=== PATIENT | male | born 1950 | race Caucasian/White ===

== ENCOUNTER 2017-07-25 03:17 | Inpatient (IN) | payer OTHER ==
[2017-07-25] VITALS (7 sets, daily range): BP systolic 108–132; BP diastolic 43–61; Ht 165.1 cm; Wt 68.7 kg
[~2017-07-25] VITALS: Ht 165.1 cm; Wt 68.7 kg
[2017-07-25] MEDS ORDERED: APAP/HYDROCODON1 T11 PO (04:28)
[2017-07-25] MEDS ORDERED: GLIPIZIDE5 M2 PO (04:29)
[2017-07-25] MEDS ORDERED: HYDROCHLOROTH12.5 M2 PO (04:30)
[2017-07-25] MEDS ORDERED: METOPROLOL TART50 MG PO (04:31)
[2017-07-25] MEDS ORDERED: LIPITOR40 MG PO (04:31)
[2017-07-25] MEDS ORDERED: LOSARTAN POTASS50 M1 PO (04:31)
[2017-07-25] MEDS ORDERED: CLOPIDOGREL75 M1 PO (04:32)
[2017-07-25 04:35] LABS: PLATELET COUNT 221 x10^3mcL (130-400)
[2017-07-25 04:40] LABS: CALCIUM 8.7 mg/dL (8.5-10.1); CARBON DIOXIDE 17.1 mmol/L (21-32); CREATININE SERUM 1.7 mg/dL (0.7-1.3); POTASSIUM SERUM 4.2 mmol/L (3.5-5.1)
[2017-07-25 04:44] LABS: ALBUMIN 2.9 g/dL (3.4-5.0); BASOPHIL % 0 % (0-2); BILIRUBIN TOTAL 0.8 mg/dL (0.20-1.00); RED CELL DISTRIBUTION WIDTH 19.4 % (11.5-14.5); TOTAL PROTEIN, SERUM 7.2 g/dL (6.4-8.2)
[2017-07-25 05:56] LABS: MAGNESIUM 1.8 mg/dL (1.8-2.4); PHOSPHOROUS 3.6 mg/dL (2.5-4.9)
[2017-07-25 06:00] LABS: CHOLESTEROL/HDL RATIO 4.8
[2017-07-25 06:05] LABS: T3 TOTAL 0.82 ng/mL
[2017-07-25 06:09] LABS: FREE T4 1.72 ng/dL (0.76-1.46); T4(THYROXINE) 9.9 ug/dL (4.7-13.3)
[2017-07-25 12:18] LABS: microscopic required? YES; urine erythrocyte 3+ (NEGATIVE)
[2017-07-25 12:26] LABS: RED BLOOD CELLS 3.03 M/mm3 (4.52-5.90)
[2017-07-25 12:46] LABS: IRON 16 ug/dL (65-170); TOTAL IRON BINDING CAPACITY 119 ug/dL (250-450)
[2017-07-25 12:53] LABS: AMPHETAMINE QUAL UR NONE DETECTED (NEG <=1000)
[2017-07-25 20:25] LABS: PLATELET COUNT 195 x10^3mcL (130-400)
[2017-07-25 20:26] LABS: BASOPHIL % 0 % (0-2); RED CELL DISTRIBUTION WIDTH 19.3 % (11.5-14.5)
[2017-07-26 04:50] LABS: PLATELET COUNT 206 x10^3mcL (130-400)
[2017-07-26 04:51] LABS: BASOPHIL % 0 % (0-2); RED CELL DISTRIBUTION WIDTH 19.3 % (11.5-14.5)
[2017-07-26 04:54] LABS: CALCIUM 8.6 mg/dL (8.5-10.1); CARBON DIOXIDE 16.9 mmol/L (21-32); CREATININE SERUM 1.3 mg/dL (0.7-1.3); POTASSIUM SERUM 3.8 mmol/L (3.5-5.1)
[2017-07-26 05:48] VITALS: BP 135/55
[2017-07-26 09:54] VITALS: BP 118/64
[2017-07-26 13:43] VITALS: BP 109/62
[2017-07-26 16:58] VITALS: BP 111/61
[2017-07-26 21:01] VITALS: BP 122/46
[2017-07-27 05:56] VITALS: BP 123/49
[2017-07-27 07:43] LABS: PLATELET COUNT 235 x10^3mcL (130-400)
[2017-07-27 07:45] LABS: BASOPHIL % 0 % (0-2); RED CELL DISTRIBUTION WIDTH 19.9 % (11.5-14.5)
[2017-07-27 08:07] LABS: CHLORIDE SERUM 102 mmol/L (98-107); CREATININE SERUM 1.2 mg/dL (0.7-1.3); GFR1 > 60 mL/min; GLUCOSE SERUM 133 mg/dL (74-106); POTASSIUM SERUM 3.5 mmol/L (3.5-5.1); SODIUM SERUM 136 mmol/L (136-145)
[2017-07-27 08:18] LABS: CALCIUM 8.4 mg/dL (8.5-10.1); CARBON DIOXIDE 21.3 mmol/L (21-32)
[2017-07-27 08:50] VITALS: BP 129/49
[2017-07-27 13:54] VITALS: BP 115/58
[2017-07-27 17:48] VITALS: BP 118/47
[2017-07-27 22:15] VITALS: BP 102/53
[2017-07-28 06:06] VITALS: BP 113/62
[2017-07-28 06:58] LABS: CALCIUM 8.2 mg/dL (8.5-10.1); CARBON DIOXIDE 21.7 mmol/L (21-32); CHLORIDE SERUM 103 mmol/L (98-107); CREATININE SERUM 1.2 mg/dL (0.7-1.3); GFR1 > 60 mL/min; GLUCOSE SERUM 135 mg/dL (74-106); POTASSIUM SERUM 3.7 mmol/L (3.5-5.1); SODIUM SERUM 138 mmol/L (136-145)
[2017-07-28 07:04] LABS: PLATELET COUNT 256 x10^3mcL (130-400)
[2017-07-28 07:22] LABS: BASOPHIL % 0 % (0-2); RED CELL DISTRIBUTION WIDTH 19.8 % (11.5-14.5)
[2017-07-28 08:07] VITALS: BP 103/50
[2017-07-28 12:16] LABS: rbc morphology (normal/abnorm) ABNORMAL (NORMAL)
[2017-07-28 12:51] VITALS: BP 108/46
[2017-07-28 15:39] VITALS: BP 108/46
== END 2017-07-28 17:34 | disposition home health service (06) | DRG 177 ==
LOC: ED 03:17 → DU 05:23
PROVIDERS: Emergency Medicine Emergency Medical Services; Family Medicine
DX: J69.0 Pneumonitis due to inhalation of food and vomit (principal); I21.A1 Myocardial infarction type 2; N17.0 Acute kidney failure with tubular necrosis; J96.01 Acute respiratory failure with hypoxia; E87.1 Hypo-osmolality and hyponatremia; E44.0 Moderate protein-calorie malnutrition; I42.2 Other hypertrophic cardiomyopathy; M62.82 Rhabdomyolysis; E87.2 Acidosis; L97.829 Non-pressure chronic ulcer of other part of left lower leg with unspecified severity; E86.0 Dehydration; I25.10 Atherosclerotic heart disease of native coronary artery without angina pectoris; E87.8 Other disorders of electrolyte and fluid balance, not elsewhere classified; D64.9 Anemia, unspecified; E66.3 Overweight; I12.9 Hypertensive chronic kidney disease with stage 1 through stage 4 chronic kidney disease, or unspecified chronic kidney disease; N18.9 Chronic kidney disease, unspecified; R31.9 Hematuria, unspecified; D50.9 Iron deficiency anemia, unspecified; Z53.29 Procedure and treatment not carried out because of patient's decision for other reasons; E11.622 Type 2 diabetes mellitus with other skin ulcer; E11.21 Type 2 diabetes mellitus with diabetic nephropathy; E11.22 Type 2 diabetes mellitus with diabetic chronic kidney disease; E11.51 Type 2 diabetes mellitus with diabetic peripheral angiopathy without gangrene; Z89.611 Acquired absence of right leg above knee; Z85.118 Personal history of other malignant neoplasm of bronchus and lung; Z95.1 Presence of aortocoronary bypass graft; Z90.5 Acquired absence of kidney; Z88.1 Allergy status to other antibiotic agents; Z87.891 Personal history of nicotine dependence; I25.2 Old myocardial infarction; Z90.49 Acquired absence of other specified parts of digestive tract; Z79.84 Long term (current) use of oral hypoglycemic drugs; Z79.899 Other long term (current) drug therapy; Z68.24 Body mass index [BMI] 24.0-24.9, adult
CPT/HCPCS: 82962; 83880; 84439; 94150; J1644; J1885; J1956; J2543; J2916; J3490; J7030; J7040

== ENCOUNTER 2019-05-05 19:02 | Inpatient (IN) | payer OTHER ==
[~2019-05-05] VITALS: Ht 167.6 cm; Wt 80.1 kg
[~2019-05-05 19:02] MED LIST: APAP/HYDROCODON1 T11 PO; CLOPIDOGREL75 M1 PO; GLIPIZIDE5 M2 PO; HYDROCHLOROTH12.5 M2 PO; LIPITOR40 MG PO; LOSARTAN POTASS50 M1 PO; METOPROLOL TART50 MG PO
[2019-05-05 19:15] VITALS: Ht 167.6 cm; Wt 80.1 kg
--- NOTE | 2019-05-05 19:21 | NUR ---
DR. WRIGHT AT BEDSIDE [facility]
--- NOTE | 2019-05-05 19:31 | NUR ---
PT. BIBA FROM HOME, C/O DOUBLE VISION BILATERALLY, PT. STATES HE WAS HOME WATCHING TV, AND HE SNEEZED, THEN BEGAN SEEING DOUBLE VISION ON BOTH EYES, HE STATES WHEN HE CLOSES ONE EYE, HE IS ABLE TO SEE CLEAR, NO LONGER SEE DOUBLE, PT. STATES THE RIGHT EYE MORE THAN THE LEFT EYE, HE SEES CLOUDY, PT. DENIES EYE PAIN, EYE DRAINAGE AT THIS TIME, DENIES SOB, WHEN FIRST ARRIVED PT. WAS 33 RR, CURRENTLY 19 RR, DENIES CHEST PAIN AT THIS TIME, DENIES N/V/D, SKIN, COOL TO TOUCH, INTACT, LEFT LEG AMPUTATED, PLACED IN BED 7, AAOX4, PLACED ON CM, NSR, NO ACUTE DISTRESS NOTED, STATES HE HAS NOT TAKEN BP MEDS TONIGHT, AT BEDSIDE, WILL MONITOR, SAFETY PRECAUTIONS IN PLACE, CALL LIGHT IN REACH,
--- NOTE | 2019-05-05 19:40 | NUR ---
PT. TO CT VIA JANUARY WITH TECH
[2019-05-05 20:11] LABS: CALCIUM 8.8 mg/dL (8.5-10.1); CARBON DIOXIDE 20.2 mmol/L (21-32); CHLORIDE SERUM 106 mmol/L (98-107); CREATININE SERUM 1.6 mg/dL (0.7-1.3); GLUCOSE SERUM 76 mg/dL (74-106); POTASSIUM SERUM 4.2 mmol/L (3.5-5.1); SODIUM SERUM 140 mmol/L (136-145)
[2019-05-05 20:15] LABS: ALBUMIN 3.4 g/dL (3.4-5.0); ALKALINE PHOSPHATASE 87 U/L (46-116); ALT/SGPT 29 U/L (16-63); AST/SGOT 11 U/L (15-37); TOTAL PROTEIN, SERUM 7.5 g/dL (6.4-8.2)
[2019-05-05 20:33] LABS: BASOPHIL % 0.5 % (0-2); PLATELET COUNT 173 x10^3mcL (130-400); RED CELL DISTRIBUTION WIDTH 15.7 % (11.5-14.5)
--- NOTE | 2019-05-05 21:20 | NUR ---
SPOKE WITH MELISSA BOYER WITH [facility] [employer]
--- NOTE | 2019-05-05 21:20 | NUR ---
REASSESSMENT- PT. STATES THAT THE IS NO LONGER SEEING DOUBLE VISION, STATES HE IS SEEING CLEAR WITHOUT ANY DIFFICULTY, REPORTED TO DR. WRIGHT,
--- NOTE | 2019-05-05 21:26 | NUR ---
MEDICATED PT. PER MD ORDER, PT. TOLERATED WELL, SEE EMAR
--- NOTE | 2019-05-05 22:08 | NUR ---
RESIDENT STUDENTS AT BEDSIDE
[2019-05-05 22:30] LABS: MAGNESIUM 1.8 mg/dL (1.8-2.4); PHOSPHOROUS 3.4 mg/dL (2.5-4.9)
--- NOTE | 2019-05-05 22:37 | NUR ---
REPORT GIVEN TO ROBERTO URIAS RN
--- NOTE | 2019-05-05 23:10 | NUR ---
RECEIVED FROM ER, TRANSFERRED VIA [facility]. AWAKE AND ALERT, ORIENTED TO NAME, PLACE, TIME AND SITUATION. SPEECH CLEAR AND APPROPRIATE. NO SLURRING OF SPEECH, NO FACIAL DROOP. DENIES HAVING BLURRY OR DOUBLE VISION AT THIS TIME. RIGHT AKA. LONG SURGICAL SCAR TO LEFT LATERAL ASPECT OF LEFT LEG. SALINE LOCK TO RIGHT AC. INSTRUCTED ON USE OF CALL LIGHT TO CALL FOR ASSISTANCE, PLACED WITHIN EASY REACH. ENDORSED TO NURSE BERRIOS
[2019-05-05 23:13] LABS: microscopic required? NO
--- NOTE | 2019-05-05 23:15 | NUR ---
RECEIVED PT FROM ROSALIND LOZOYA. PT AOX4, DENIES PITT/DIZZINESS, NO FACIAL DROOP OR SLURRING NOTED. ON TELE #9, READING SR. DENIES CP/PRESSURE. DENIES SOB/DIFFICULTY BREATHING, ON RA. R. ABOVE THE KNEE AMP. IV TO RAC, INTACT AND PATENT. BED IN LOWEST POSITION. CALL LIGHT WITHIN REACH. WILL CONTINUE TO MONITOR.
[2019-05-05 23:22] LABS: UA SPECIFIC GRAVITY <=1.005 (1.005-1.035); urine erythrocyte NEGATIVE (NEGATIVE)
[2019-05-05 23:26] VITALS: BP 146/68
[2019-05-05 23:38] LABS: AMPHETAMINE QUAL UR NONE DETECTED (See below)
--- NOTE | 2019-05-06 02:45 | NUR ---
PT RESTING IN BED. RR EVEN AND UNLABORED. IN NO ACUTE DISTRESS. CALL LIGHT WITHIN REACH. BED IN LOWEST POSITION. WILL CONTINUE TO MONITOR.
[2019-05-06 05:36] VITALS: BP 116/56
--- NOTE | 2019-05-06 07:30 | NUR ---
PATIENT IS A&OX4. FOLLOWS COMMANDS AND DENIES ANY NEUROLOGICAL CHANGE. TELE #9, NSR. DENIES CHEST PAIN. PERIPHERAL PULSES PALPABLE W/ NO SIGNS OF EDEMA. LUNG SOUNDS DIMINISHED. ON RA. DENIES SOB. NORMOACTIVE BSX4. VOIDS WELL USING URINAL. RLE AKA. WHEELCHAIR AT BEDSIDE. CURRENTLY LYING SUPINE IN BED. LARGE SCAR TO LLE PRESENT FROM PREVIOUS SURGICAL HX OF FASCIOTOMY. DENIES ANY PAIN OR DISCOMFORT. RAC IV SITE IS CDI. WILL CONTINUE TO MONITOR AT THIS TIME.
--- NOTE | 2019-05-06 07:51 | NUR ---
PT WAS SEEN FOR DYSPHAGIA. PT WAS ABVLE TO SAFELY SWALLOW REGULAR DIET WITH THIN LIQUID WITHOUT S/S OF ASPIRATION. RECOMMENDATION REGULAR DIET WITH THIN LIQUID.
[2019-05-06 08:00] VITALS: BP 114/62
[2019-05-06 11:43] VITALS: BP 129/60
--- NOTE | 2019-05-06 12:24 | NUR ---
ECHO WITH [id number] REQUESTING TEST BE DONE AFTER HE EATS LUNCH
[2019-05-06 16:20] VITALS: BP 133/66
--- NOTE | 2019-05-06 17:51 | NUR ---
PATIENT IS ALERT & ORIENTED X4. DENIES CHEST PAIN. NO SIGNIFICANT CHANGES IN NEUROLOGCIAL STATUS. PATIENT IS CURRENTLY RESTING WHILE WATCHING TELEVISION. PATIENT DENIES ANY PAIN OR DISCOMFORT AT THIS TIME. ALL QUESTIONS AND CONCERNS HAVE BEEN ADDRESSED. WILL CONTINUE TO MONITOR.
--- NOTE | 2019-05-06 19:10 | NUR ---
REPORT RECEIVED FROM DAY SHIFT RN. PATIENT WAS SEEN RESTING COMFORTABLY IN BED. NO DISTRESS NOTED. BREATHING EVEN AND UNLABORED ON ROOM AIR. NO SOB OR RESP DISTRESS NOTED. NO C/O PAIN. DENIES CHEST PAIN/PRESSURE. IV TO THE RAC, SALINE LOCK. PATENT AND INTACT. NO REDNESS OR SWELLING NOTED. A/OX4. NO FACIAL DROOP OR SLURRING NOTED. CLEAR AND APPROPIATE SPEECH. RIGHT AKA AND LARGE HEALED SCAR TO LLE. COMFORT AND SAFETY MEASURES IN PLACE. BED IS LOCKED AND IN THE LOWEST POSITION. SIDE RAILS UP X2. CALL LIGHT IS WITHIN REACH. WILL CONTINUE TO MONITOR.
[2019-05-06 21:04] VITALS: BP 122/58
--- NOTE | 2019-05-06 23:08 | NUR ---
RAC IV INFILTRATED W/ ERYTHEMA. REMOVED WITH CATHETER INTACT. NEW IV PLACED TO RH, 22G. FLUSHES WELL. PATENT AND INTACT. NO DISTRESS NOTED. SAFETY MEASURES IN PLACE. CALL LIGHT IS WITHIN REACH. WILL CONTINUE TO MONITOR.
--- NOTE | 2019-05-07 01:53 | NUR ---
RESTING IN BED W/ EYES CLOSED. BREATHING EVEN AND UNLABORED ON ROOM AIR. NO SOB NOTED. NO APPARENT DISTRESS NOTED. NO S/S OF PAIN NOTED. SAFETY MEASURES IN PLACE. CALL LIGHT IS WITHIN REACH. WILL CONTINUE TO MONITOR.
[2019-05-07 04:58] VITALS: BP 128/53
[2019-05-07 05:28] VITALS: BP 144/58
--- NOTE | 2019-05-07 06:30 | NUR ---
RESTED IN INTERVALS THROUGHOUT THE NIGHT. NO ACUTE CHANGES NOTED. NO DISTRESS NOTED. BREATHING EVEN AND UNLABORED. NO SOB NOTED. DENIES CHEST PAIN/PRESSURE. NO C/O PAIN NOTED. IV TO THE RH, SALINE LOCK. PATENT AND INTACT. NO REDNESS OR SWELLING NOTED. ALL NEEDS AND CONCERNS ADDRESSED. BED IS LOCKED AND IN THE LOWEST POSITION. SIDE RAILS UP X2. CALL LIGHT IS WITHIN REACH. WILL ENDORSED CARE TO DAY SHIFT RN.
[2019-05-07 07:04] LABS: BASOPHIL % 0.4 % (0-2); PLATELET COUNT 160 x10^3mcL (130-400)
[2019-05-07 07:06] LABS: RED CELL DISTRIBUTION WIDTH 15.8 % (11.5-14.5)
[2019-05-07 07:19] LABS: CALCIUM 8.5 mg/dL (8.5-10.1); CARBON DIOXIDE 18.1 mmol/L (21-32); CHLORIDE SERUM 109 mmol/L (98-107); CREATININE SERUM 1.5 mg/dL (0.7-1.3); GLUCOSE SERUM 117 mg/dL (74-106); PHOSPHOROUS 3.3 mg/dL (2.5-4.9); POTASSIUM SERUM 4.5 mmol/L (3.5-5.1); SODIUM SERUM 140 mmol/L (136-145)
--- NOTE | 2019-05-07 07:30 | NUR ---
PATIENT IS A&OX4, TELE #9, NSR. DENIES CHEST PAIN. PERIPEHRAL PULSES PALPABLE W/ NO SIGNS OF EDEMA. ON ASPIRIN, PLAVIX, HEPARIN. LUNG SOUNDS DIMINISHED BILATERALLY, ON RA. NORMOACTIVE BSX4. VOIDS WELL. RLE AKA. BEDREST, LYING SUPINE AT THIS TIME. LARGE SCAR TO LLE HEALED. DENIES PAIN. IV SITE IS CDI. VSS. WILL CONTINUE TO MONITOR
[2019-05-07 09:20] VITALS: BP 118/59
[2019-05-07 11:58] VITALS: BP 135/74
[2019-05-07 12:14] VITALS: BP 127/59
--- NOTE | 2019-05-07 12:25 | NUR ---
PATIENT HAS RECEVED DISCHARGE INSTRUCTIONS TO GO HOME. PATIENT VERBALIZED UNDERSTANDING OF INSTRUCTIONS AND SIGNED SIGNATURES. ALL QUESTIONS AND CONCERNS HAVE BEEN ADDRESSED. TELE WAS DC, IV CATHETER WAS DC AND IS INTACT. PATIENT DENIES ANY PAIN OR DISCOMFORT AT THIS TIME. WILL TRANSFER TO WHEELCHAIR ONCE PATIENT'S ARRIVES. WILL CONTINUE TO MONITOR
--- NOTE | 2019-05-07 12:38 | NUR ---
PATIENT HAS BEEN DISCHARGED WITH AND [employer]. ALL QUESTIONS AND CONCERNS AHVE BEEN ADDRESSED.
== END 2019-05-07 12:38 | disposition home or self-care (01) | DRG 69 ==
LOC: ED 19:02 → EDBD 19:02 → DU 21:53
PROVIDERS: Emergency Medicine; ADMIT Internal Medicine
DX: G45.9 Transient cerebral ischemic attack, unspecified (principal); N17.0 Acute kidney failure with tubular necrosis; H53.8 Other visual disturbances; E11.9 Type 2 diabetes mellitus without complications; I11.9 Hypertensive heart disease without heart failure; I25.10 Atherosclerotic heart disease of native coronary artery without angina pectoris; D64.9 Anemia, unspecified; I25.2 Old myocardial infarction; Z95.1 Presence of aortocoronary bypass graft; Z85.528 Personal history of other malignant neoplasm of kidney; Z90.5 Acquired absence of kidney; Z85.118 Personal history of other malignant neoplasm of bronchus and lung; Z99.3 Dependence on wheelchair; Z89.511 Acquired absence of right leg below knee; Z68.29 Body mass index [BMI] 29.0-29.9, adult
CPT/HCPCS: 82962; 92526-GN; 92610-GN; 97530-GP; G0378; J1644; J2060; Q0092

== ENCOUNTER 2020-02-15 00:45 | Observation (INO) | payer OTHER ==
[~2020-02-15] VITALS: Ht 152.4 cm; Wt 81.6 kg
[~2020-02-15 00:45] MED LIST changes: +BG FS; +GLIPIZIDE XL5 M2 PO; +HEP5I SC; +HUMULIN R100 U/1 M1 SC; +SIMVASTATIN5 M2 PO; +TYL325 PO; +[UNRECOGNIZED DRUG - CODE] SQ
[2020-02-15 00:54] VITALS: Ht 152.4 cm; Wt 81.6 kg
[2020-02-15 02:11] LABS: BASOPHIL % 0.2 % (0-2)
[2020-02-15 02:12] LABS: PLATELET COUNT 230 x10^3mcL (130-400); RED CELL DISTRIBUTION WIDTH 16.2 % (11.5-14.5)
[2020-02-15] MEDS ORDERED: INSULIN SYRING1 EA29 (02:36)
[2020-02-15] MEDS ORDERED: ATORVASTATIN CA10 M1 (02:37)
[2020-02-15] MEDS ORDERED: MICROZIDE12.5 MG (02:37)
[2020-02-15] MEDS ORDERED: METOPROLOL ER-1 EACH (02:37)
[2020-02-15 02:46] LABS: ALKALINE PHOSPHATASE 97 U/L (46-116); ALT/SGPT 24 U/L (16-63); AST/SGOT 11 U/L (15-37); CARBON DIOXIDE 21.2 mmol/L (21-32); CHLORIDE SERUM 95 mmol/L (98-107); CREATININE SERUM 2.2 mg/dL (0.7-1.3); MAGNESIUM 2.5 mg/dL (1.8-2.4); PHOSPHOROUS 4.5 mg/dL (2.5-4.9); POTASSIUM SERUM 4.6 mmol/L (3.5-5.1); SODIUM SERUM 129 mmol/L (136-145); TOTAL PROTEIN, SERUM 7.2 g/dL (6.4-8.2)
[2020-02-15 02:47] LABS: ALBUMIN 2.5 g/dL (3.4-5.0)
[2020-02-15 02:48] LABS: GLUCOSE SERUM 708 mg/dL (74-106)
[2020-02-15 05:53] VITALS: BP 112/57
[2020-02-15 08:21] VITALS: BP 108/51
[2020-02-15 08:47] LABS: CALCIUM 8.5 mg/dL (8.5-10.1); CHLORIDE SERUM 103 mmol/L (98-107); CREATININE SERUM 1.9 mg/dL (0.7-1.3); GLUCOSE SERUM 429 mg/dL (74-106); POTASSIUM SERUM 4.2 mmol/L (3.5-5.1); SODIUM SERUM 133 mmol/L (136-145)
[2020-02-15 17:28] VITALS: BP 169/78
[2020-02-15 20:30] VITALS: BP 96/57
[2020-02-16 05:33] VITALS: BP 95/51
[2020-02-16 08:26] LABS: BASOPHIL % 0.3 % (0-2); PLATELET COUNT 220 x10^3mcL (130-400)
[2020-02-16 08:30] VITALS: BP 107/52
[2020-02-16 08:35] LABS: RED CELL DISTRIBUTION WIDTH 17.3 % (11.5-14.5)
[2020-02-16 08:36] LABS: ALKALINE PHOSPHATASE 82 U/L (46-116); ALT/SGPT 22 U/L (16-63); AMYLASE 55 U/L (25-115); AST/SGOT 17 U/L (15-37); BILIRUBIN TOTAL 0.5 mg/dL (0.20-1.00); CALCIUM 8.9 mg/dL (8.5-10.1); CARBON DIOXIDE 24.3 mmol/L (21-32); CHLORIDE SERUM 105 mmol/L (98-107); GLUCOSE SERUM 205 mg/dL (74-106); LIPASE 171 IU/L (73-393); MAGNESIUM 2.3 mg/dL (1.8-2.4); PHOSPHOROUS 3.7 mg/dL (2.5-4.9); POTASSIUM SERUM 4.9 mmol/L (3.5-5.1); SODIUM SERUM 136 mmol/L (136-145)
[2020-02-16 08:47] LABS: ALBUMIN 2.4 g/dL (3.4-5.0); CHOLESTEROL 82 mg/dL (<200); CHOLESTEROL/HDL RATIO 5.5; HDL CHOLESTEROL 15 mg/dL (40-60); TRIGLYCERIDES 228 mg/dL (<150)
[2020-02-16 12:20] VITALS: BP 110/53
[2020-02-16 15:04] VITALS: BP 102/55
[2020-02-16 21:22] VITALS: BP 105/58
[2020-02-17 05:43] VITALS: BP 109/54
[2020-02-17 07:08] LABS: BASOPHIL % 0.1 % (0-2); PLATELET COUNT 198 x10^3mcL (130-400)
[2020-02-17 07:18] LABS: ALKALINE PHOSPHATASE 77 U/L (46-116); ALT/SGPT 20 U/L (16-63); AMYLASE 39 U/L (25-115); AST/SGOT 14 U/L (15-37); BILIRUBIN TOTAL 0.3 mg/dL (0.20-1.00); CALCIUM 8.4 mg/dL (8.5-10.1); CHLORIDE SERUM 105 mmol/L (98-107); CREATININE SERUM 1.7 mg/dL (0.7-1.3); GLUCOSE SERUM 285 mg/dL (74-106); LIPASE 174 IU/L (73-393); MAGNESIUM 2.4 mg/dL (1.8-2.4); PHOSPHOROUS 2.7 mg/dL (2.5-4.9); POTASSIUM SERUM 4.2 mmol/L (3.5-5.1); SODIUM SERUM 135 mmol/L (136-145); TOTAL PROTEIN, SERUM 6.6 g/dL (6.4-8.2)
[2020-02-17 07:22] LABS: ALBUMIN 2.2 g/dL (3.4-5.0)
[2020-02-17 08:06] VITALS: BP 101/55
[2020-02-17 09:53] LABS: RED CELL DISTRIBUTION WIDTH 17.6 % (11.5-14.5)
[2020-02-17 12:54] VITALS: BP 121/66
[2020-02-17 15:53] VITALS: BP 121/66
[2020-02-17 16:22] VITALS: BP 154/57
== END 2020-02-17 18:00 | disposition home health service (06) ==
LOC: ED 00:45 → DU 03:37
PROVIDERS: Emergency Medicine; ADMIT Hospitalist; ATTEND Hospitalist
DX: E11.65 Type 2 diabetes mellitus with hyperglycemia (principal); I10 Essential (primary) hypertension; R41.0 Disorientation, unspecified; F17.210 Nicotine dependence, cigarettes, uncomplicated
CPT/HCPCS: 36600; 82962; G0378; J1644; J1815; J7030; J7131; Q0092